=== PATIENT | female | born 1955 | race Caucasian/White ===

== ENCOUNTER 2025-07-11 09:56 | Emergency (ER) | payer OTHER, SELFPAY ==
[2025-07-11 10:22] VITALS: BP 153/100; PULSE 108; RESP 15; O2SAT 97; BMI 20.2
--- NOTE | 2025-07-11 11:06 | ED_ITS ---
HPI - Abdominal Pain General Chief Complaint: Abdominal Pain Stated Complaint: Stomach pain , 6 months getting worse Time Seen by Provider: 07/11/25 10:56 Source: patient and family Mode of arrival: Ambulatory History of Present Illness HPI narrative: Patient is 70-year-old female presenting today with ongoing left-sided abdominal pain. It sounds like this has been off and on for awhile but worse over the last couple of days. No nausea no vomiting sounds like it is radiating from her back to her front. She also reports that she can not stop urinating she is drinking plenty of water decrease in appetite somewhat. No fever no chills no chest pain cough or shortness of breath. Patient reports that she was worked up for this in [place] she had an MRI and saw a urologist at some point. Related Data Allergies Allergy/AdvReac Type Severity Reaction Status Date / Time No Known Drug Allergies Allergy Verified 07/11/25 10:24 Patient History Social History Smoking Status: Never smoker Smoking Status: Never smoker Exam Initial Vital Signs Initial Vital Signs: Vital Signs Pulse Rate 108 H 07/11/25 10:22 Respiratory Rate 15 07/11/25 10:22 Blood Pressure 153/100 H 07/11/25 10:22 Pulse Oximetry 97 07/11/25 10:22 Oxygen Delivery Method Room Air 07/11/25 10:22 GENERAL: Alert 70-year-old female and in no acute distress. HEENT: Head atraumatic,EOMI, pupils reactive, face symmetric, moist mucous membranes CARDIOVASCULAR: Regular rate and rhythm without murmurs, rubs or gallops. RESPIRATORY: Breath sounds equal bilaterally, no wheezes rales or rhonchi. ABDOMEN: Soft, mild left-sided pain no guarding no rebound no distention : minimal left CVA tenderness EXTREMITIES: Normal range of motion, no clubbing or edema. Neurovascularly intact NEUROLOGICAL: Alert and oriented x4.Normal gait and speech. Cranial nerves II through XII grossly intact. SKIN: Warm, dry, no laceration, no petechiae, no rashes or lesions. Course Orders Ordered: ED Orders 07/11/25 10:05 Complete Blood Count AUTO DIFF Stat Comprehensive Metabolic Panel Stat Lactate (Lactic Acid) Stat Lipase Stat 07/11/25 11:11 CT abdomen pelvis w con Stat 07/11/25 11:16 Urine Microscopic Stat Discontinued Medications Ketorolac Tromethamine (Ketorolac 30 Mg/Ml Vial) 15 mg IV NOW ONE Stop: 07/11/25 11:12 Last Admin: 07/11/25 11:25 Dose: 15 mg Documented By: RAISSA Vital Signs Vital signs: Vital Signs - 8 hr 07/11/25 10:22 07/11/25 13:01 Pulse Rate 108 H 99 H Respiratory Rate 15 16 Blood Pressure 153/100 H 150/65 H Pulse Oximetry 97 97 Oxygen Delivery Method Room Air Room Air MDM - Abdominal Pain Lab Data 07/11/25 10:05 07/11/25 10:05 Labs: Lab Results 07/11/25 07/11/25 Range/Units 10:05 11:16 WBC 6.7 (4.5-11.0) X10^3/uL RBC 4.03 (4.0-5.2) X10^6/uL Hgb 12.9 (12.0-16.0) g/dL Hct 38.2 (36-46) % MCV 94.8 (80-100) fL MCH 32.1 (26-34) PG MCHC 33.8 (30-36) % RDW 13.6 (11.6-14.8) % Plt Count 244 (150-400) X10^3/uL Neut % (Auto) 52.6 (50-75) % Lymph % (Auto) 35.3 (25-40) % [place] % (Auto) 7.3 (3-14) % Eos % (Auto) 4.2 H (2-4) % Baso % (Auto) 0.6 (0-2) % Neut # (Auto) 3500 (1265-3677) /uL Lymph # (Auto) 2400 (0378-4065) /uL [place] # (Auto) 500 (0-900) /uL Eos # (Auto) 300 (0-450) /uL Baso # (Auto) 0 (0-100) /uL Sodium 141 (137-145) mmol/L Potassium 3.9 (3.4-5.1) mmol/L Chloride 102 (98-107) mmol/L Carbon Dioxide 31 (22-32) mmol/L BUN 25 H (7-17) mg/dL Creatinine 0.81 (0.52-1.04) mg/dL Estimated GFR > 60 (>60) mL/min BUN/Creatinine Ratio 30.9 H (6-22) Glucose 110 H (70-99) mg/dL Lactate 1.5 (0.7-2.1) mmol/L Calcium 9.7 (8.4-10.2) mg/dL Total Bilirubin 0.2 (0.2-1.3) mg/dL AST 30 (14-36) IU/L ALT 9 (<35) IU/L Alkaline Phosphatase 50 (38-126) U/L Total Protein 6.9 (6.3-8.2) g/dL Albumin 4.3 (3.5-5.0) g/dL Globulin 2.6 (1.7-4.1) g/dL Albumin/Globulin Ratio 1.7 (1.0-2.8) Lipase 81 (23-300) U/L Urine RBC 0-1/hpf (0-5/HPF) Urine WBC 0-1/hpf (0-5/HPF) Ur Squamous Epith Cells 0-1 /hpf (0-5/HPF) Urine Bacteria None seen (None) Ur Culture Indicated? Cult not indicated Vol Urine Centrifuged 10ml (spun) Point of care testing: Urine Dip Bedside Urine Glucose Negative Bedside Urine Bilirubin - Negative Bedside Urine Ketone ++ 40 Urine Specific [place] 1.010 Bedside Urine Occult Blood + Bedside Urine pH 6.0 Bedside Urine Protein - Negative Bedside Urine Urobilinogen - Negative Bedside Urine Nitrite - Negative Bedside Urine Leukocytes - Negative Esterase Imaging Data CT scan - abdomen/pelvis: Radiologist's Impression: PROCEDURE: CT ABDOMEN PELVIS W CON INDICATIONS: left sided pain TECHNIQUE: After the administration of intravenous contrast, axial sections acquired from the lung bases to the pubic symphysis. Coronal and sagittal reformats were performed. For radiation dose reduction, the following was used: automated exposure control, adjustment of mA and/or kV according to patient size. COMPARISON: None. FINDINGS: Image quality: Diagnostic. Lower Chest: No significant findings. ABDOMEN: Liver: No solid mass. Scattered hypoattenuating lesions are seen in the liver, largest in the left hepatic lobe is consistent with a cyst. Gallbladder: Radiolucent gallstones are present. No significant pericholecystic inflammatory changes. Biliary ducts: No biliary dilation. Pancreas: No ductal dilation. Spleen: Size is within normal limits. Adrenal Glands: No adrenal nodules. Kidneys and Ureters: No hydronephrosis. No solid mass. No complex renal cystic lesion which requires follow up. Hypoattenuating lesions in the kidneys are too small to characterize, but likely represent cysts. Stomach and Bowel: Multiple diverticula in the colon without focal acute diverticulitis seen. Normal appendix. Small bowel loops are unremarkable. Moderate stool in the right colon. Peritoneum: No abnormal intraperitoneal fluid. No free air. Ventral Wall: No significant ventral hernia. Abdominal Nodes: No retroperitoneal or mesenteric adenopathy by size criteria. Vessels: Aorta and inferior vena cava are normal in size. PELVIS: Pelvic Organs: 1.7 cm cyst in the right adnexa. Bladder: No bladder wall thickening, accounting for underdistention. Pelvic Nodes: No enlarged lymph nodes. Miscellaneous: No inguinal hernias are seen. Bones: No aggressive osseous abnormality. IMPRESSION: 1. No acute inflammatory process identified in the abdomen or pelvis. 2. Colonic diverticulosis without signs of acute diverticulitis. Normal appendix. 3. Cholelithiasis. Approved by: Chandan Silva M.D. on 07/11/2025 at 11:52 MDM Narrative Medical decision making narrative: Patient is 70-year-old female presenting today with left-sided pain. Off and on for awhile but worse over last couple of days. Has not taken anything for pain prior to arrival. Blood work has been reviewed CBC shows no abnormality CMP no abnormalities Creatinine bilirubin liver enzymes lipase all within normal Urinalysis no evidence of UTI Imaging has been reviewed CT abdomen pelvis no acute abnormality Patient given Toradol here in the ED At this time no cause of patient's pain. Blood work is overall reassuring CT does not find any abnormalities pain is not out of proportion. No need for antibiotics. Feeling else somewhat better after Toradol. Sounds like she has had frequent urination ongoing for number of years. 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 Discharge Plan Departure Patient Disposition: Home Clinical Impression: Abdominal pain Instructions: DI for Abdominal Pain-Adult Activity Restrictions/Additional Instructions: *You have been diagnosed with abdominal pain *What to do: At this time you may want to see Urology *Continue to take medications as directed *Follow up with your primary care provider in 2-3 days or call [phone] Pretty *Return to ER if you should have [such as] [or] any new, worsening or concerning symptoms Referrals: Aidan Barr DO [Physician, Urology] Tylor Malik MD [Physician, Urogynecology] Yves Miller MD [Primary Care Provider, Internal Medicine] Stand Alone Forms: Patient Portal/API
--- NOTE | 2025-07-11 11:11 | DI.CT.S_ITS ---
PROCEDURE: CT ABDOMEN PELVIS W CON INDICATIONS: left sided pain TECHNIQUE: After the administration of intravenous contrast, axial sections acquired from the lung bases to the pubic symphysis. Coronal and sagittal reformats were performed. For radiation dose reduction, the following was used: automated exposure control, adjustment of mA and/or kV according to patient size. COMPARISON: None. FINDINGS: Image quality: Diagnostic. Lower Chest: No significant findings. ABDOMEN: Liver: No solid mass. Scattered hypoattenuating lesions are seen in the liver, largest in the left hepatic lobe is consistent with a cyst. Gallbladder: Radiolucent gallstones are present. No significant pericholecystic inflammatory changes. Biliary ducts: No biliary dilation. Pancreas: No ductal dilation. Spleen: Size is within normal limits. Adrenal Glands: No adrenal nodules. Kidneys and Ureters: No hydronephrosis. No solid mass. No complex renal cystic lesion which requires follow up. Hypoattenuating lesions in the kidneys are too small to characterize, but likely represent cysts. Stomach and Bowel: Multiple diverticula in the colon without focal acute diverticulitis seen. Normal appendix. Small bowel loops are unremarkable. Moderate stool in the right colon. Peritoneum: No abnormal intraperitoneal fluid. No free air. Ventral Wall: No significant ventral hernia. Abdominal Nodes: No retroperitoneal or mesenteric adenopathy by size criteria. Vessels: Aorta and inferior vena cava are normal in size. PELVIS: Pelvic Organs: 1.7 cm cyst in the right adnexa. Bladder: No bladder wall thickening, accounting for underdistention. Pelvic Nodes: No enlarged lymph nodes. Miscellaneous: No inguinal hernias are seen. Bones: No aggressive osseous abnormality. IMPRESSION: 1. No acute inflammatory process identified in the abdomen or pelvis. 2. Colonic diverticulosis without signs of acute diverticulitis. Normal appendix. 3. Cholelithiasis. Approved by: Chandan Silva M.D. on 07/11/2025 at 11:52
[2025-07-11 11:18] LABS: Add Manual Diff / Slide Review NO; Hematocrit 38.2 % (36-46); Hemoglobin 12.9 g/dL (12.0-16.0); Lymphocytes Absolute Auto 2400 /uL (1100-4500); Mean Corpuscular HGB Conc 33.8 % (30-36); Mean Corpuscular Hemoglobin 32.1 PG (26-34); Mean Corpuscular Volume 94.8 fL (80-100); Platelet Count 244 X10^3/uL (150-400)
[2025-07-11] MEDS: KETOROLAC 30 MG/ML VIAL 15 MG IV (11:25)
[2025-07-11 11:31] LABS: Lactate (Lactic Acid) 1.5 mmol/L (0.7-2.1)
[2025-07-11 11:34] LABS: Alanine Aminotransferase 9 IU/L (<35); Albumin 4.3 g/dL (3.5-5.0); Albumin Globulin Ratio 1.7 (1.0-2.8); Alkaline Phosphatase 50 U/L (38-126); Blood Urea Nitrogen 25 mg/dL (7-17); Calcium 9.7 mg/dL (8.4-10.2); Carbon Dioxide 31 mmol/L (22-32); Chloride 102 mmol/L (98-107); Estimated Glomerular Filt Rate > 60 mL/min (>60); Globulin 2.6 g/dL (1.7-4.1); Glucose 110 mg/dL (70-99); HEMOLYSIS < 15 (0-50); Lipase 81 U/L (23-300); Potassium 3.9 mmol/L (3.4-5.1); Sodium 141 mmol/L (137-145); Total Protein 6.9 g/dL (6.3-8.2)
[2025-07-11 11:47] LABS: Culture Indicated Urine Cult Not Indicated
[2025-07-11 13:01] VITALS: BP 150/65; PULSE 99; RESP 16; O2SAT 97
== END 2025-07-11 13:02 | disposition home or self-care (01) ==
PROVIDERS: Emergency Provider Emergency Medicine; PCP Internal Medicine
DX: R10.9 Unspecified abdominal pain (principal)
CPT/HCPCS: 74177; 80053; 81003; 81015; 83605; 83690; 85025; 96374; 99283; 99284; J1885; Q9967